=== PATIENT | male | born 1960 | race Caucasian/White ===

== ENCOUNTER → 2017-09-21 | Outpatient (CLI) | payer BC ==
[~2017-09-21] MED LIST: ALBU90AE IH; ALLO100T PO; ASPI-1181 PO; ASPI81TA40 PO; ATOR40TA69 PO; CARV6.25 PO; CEPH500B PO; CLOP75TA32 PO; FENO48TA4 PO; GUAI600T35 PO; HYDR12.530 PO; L.AC1CAP6 PO; NAPR-1023 PO; OMEP40CA37 PO; REGADENOSON 0.4 MG/5 ML PF SYG IVP SCH; ROSU20TA38 PO; VALS160T28 PO
== END | disposition home or self-care (01) ==
LOC: SHCH 08:26
PROVIDERS: ATTEND Internal Medicine Cardiovascular Disease
DX: R07.9 Chest pain, unspecified (principal); R06.00 Dyspnea, unspecified
CPT/HCPCS: 78452; 93017; 96374; A9500 ×2; J2785

== ENCOUNTER 2017-10-15 06:50 | Observation (INO) | payer BC ==
[2017-10-13 08:47] VITALS: BP 147/80
[2017-10-13 08:57] LABS: BASOPHILS % (AUTO) 0.6 % (0.0-5.0); EOSINOPHILS % (AUTO) 3.8 % (0.0-8.0); HEMATOCRIT 40.9 % (42-54); LYMPHOCYTES % (AUTO) 31.2 % (21.0-51.0); MEAN CORPUSCULAR HEMOGLOBIN 26.8 pg (27.0-33.0); MEAN CORPUSCULAR HGB CONC 33.5 g/dL (32.0-36.0); MONOCYTES % (AUTO) 8.1 % (3.0-13.0); NEUTROPHILS % (AUTO) 56.3 % (40.0-77.0); PLATELET COUNT (AUTO) 324 K/uL (130-400); RED BLOOD CELL COUNT(AUTO) 5.11 MIL/uL (4.50-6.20); RED CELL DISTRIBUTION WIDTH 13.6 % (11.0-15.5); WHITE BLOOD COUNT (AUTO) 8.7 K/uL (4.8-10.8)
[2017-10-13 08:59] LABS: APPEARANCE,URINE Clear (CLEAR); BILIRUBIN,URINE Negative (NEGATIVE); COLOR,URINE Yellow (YELLOW); GLUCOSE, URINE (UA) Negative (NEGATIVE); KETONES,URINE Negative (NEGATIVE); LEUKOCYTE ESTERASE ,URINE Negative (NEGATIVE); NITRATE,URINE Negative (NEGATIVE); OCCULT BLOOD,URINE Negative (NEGATIVE); PROTEIN,URINE Negative (NEGATIVE); UROBILINOGEN,URINE 0.2 mg/dL (0.2-1.0)
[2017-10-13 09:06] LABS: CREATININE 1.2 mg/dL (0.5-1.5); POTASSIUM 4.2 mmol/L (3.5-5.1)
[2017-10-13 09:16] LABS: PROTHROMBIN TIME 10.5 SEC (9.6-11.6)
[2017-10-15] VITALS (7 sets, daily range): BP systolic 109–137; BP diastolic 59–77
[~2017-10-15] VITALS: Ht 182.9 cm; Wt 139.7 kg
[~2017-10-15 06:50] MED LIST changes: -ALLO100T PO; -ASPI81TA40 PO; -CARV6.25 PO; -CEPH500B PO; -CLOP75TA32 PO; -NAPR-1023 PO; -REGADENOSON 0.4 MG/5 ML PF SYG IVP SCH; -ROSU20TA38 PO
[2017-10-15] MEDS ORDERED: SODIUM CHLORIDE 0.9% 1000ML 1,000 ML IV ONE (08:07)
[2017-10-15] MEDS ORDERED: HEPARIN SODIUM 1000UNIT/ML 10ML VIAL ONE (17:21)
[2017-10-15] MEDS ORDERED: NITROGLYCERIN 5 MG/ML 10 ML VIAL IV ONE (17:21)
[2017-10-15] MEDS ORDERED: IOPAMIDOL-370 100 ML VIAL IV ONE (17:21)
[2017-10-15] MEDS ORDERED: ISOVUE-370 50ML VIAL IV ONE ×2 (17:21→18:36)
[2017-10-15] MEDS ORDERED: LIDOCAINE HCL 2% 20ML ONE (17:22)
[2017-10-15] MEDS ORDERED: BIVALIRUDIN 250 MG/VIAL IV ONE (18:04)
[2017-10-15] MEDS ORDERED: CLOPIDOGREL BISULFATE 300 MG TAB ONE (18:27)
[2017-10-15] MEDS ORDERED: LABETALOL HCL 5 MG/ML 20ML VIAL IV ONE (18:33)
[2017-10-15] MEDS ORDERED: ASPIRIN 81MG TAB.CHEW ONE (19:07)
[2017-10-15] MEDS ORDERED: HYDRALAZINE HCL 20 MG/ML VIAL ONE ×2 (19:07→19:16)
[2017-10-15] MEDS ORDERED: SODIUM CHLORIDE 0.9% 1000ML 1,000 ML IV SCH (19:08)
[2017-10-15] MEDS ORDERED: ALBUTEROL SULFATE IH PRN (19:45)
[2017-10-15] MEDS ORDERED: CARVEDILOL 6.25 MG TABLET PO SCH (19:45)
[2017-10-15] MEDS ORDERED: GUAIFENESIN 600 MG TABLET.ER PO PRN (19:45)
[2017-10-15] MEDS ORDERED: PHARMACY COMMUNICATION MISC PRN (19:45)
[2017-10-15] MEDS: CARVEDILOL 6.25 MG TABLET PO SCH (20:38)
[2017-10-15] MEDS: LOSARTAN 100 MG TABLET PO SCH (21:00)
[2017-10-15] MEDS ORDERED: ATROPINE SULFATE 0.1 MG/ML 10 ML SYG IVP ONE (21:24)
[2017-10-16 03:58] VITALS: BP 110/64
[2017-10-16 04:27] LABS: HEMATOCRIT 37.9 % (42-54); MEAN CORPUSCULAR HEMOGLOBIN 26.7 pg (27.0-33.0); MEAN CORPUSCULAR HGB CONC 33.9 g/dL (32.0-36.0); MEAN CORPUSCULAR VOLUME 78.8 fL (79-99); PLATELET COUNT (AUTO) 326 K/uL (130-400); RED BLOOD CELL COUNT(AUTO) 4.81 MIL/uL (4.50-6.20); RED CELL DISTRIBUTION WIDTH 13.9 % (11.0-15.5); WHITE BLOOD COUNT (AUTO) 9.9 K/uL (4.8-10.8)
[2017-10-16 04:37] LABS: CREATININE 1.2 mg/dL (0.5-1.5); POTASSIUM 3.6 mmol/L (3.5-5.1)
[2017-10-16 07:00] VITALS: BP 134/77
[2017-10-16 07:48] VITALS: BP 110/64
[2017-10-16] MEDS: CARVEDILOL 6.25 MG TABLET PO SCH (07:48)
[2017-10-16] MEDS: LOSARTAN 100 MG TABLET PO SCH (07:48)
[2017-10-16] MEDS ORDERED: ASPIRIN 81MG TAB.CHEW PO SCH (09:00)
[2017-10-16] MEDS ORDERED: FENOFIBRATE NANOCRYSTALLIZED 48 MG TAB PO SCH (09:00)
[2017-10-16] MEDS ORDERED: NON-FORMULARY MEDICATION 1 EACH (Omeprazole 40 MG) PO SCH (09:00)
[2017-10-16] MEDS ORDERED: ASPIRIN 81 MG EC TAB PO SCH (09:00)
[2017-10-16] MEDS ORDERED: L.acidoph & Paracasei,B.lactis (Probiotic) 1 EACH PO SCH (09:00)
[2017-10-16] MEDS ORDERED: CLOPIDOGREL BISULFATE 75 MG TAB PO SCH (09:00)
[2017-10-16] MEDS ORDERED: ATORVASTATIN CALCIUM 40 MG TABLET PO SCH (09:00)
[2017-10-16] MEDS ORDERED: PANTOPRAZOLE SODIUM 40 MG TABLET.DR PO SCH (09:00)
[2017-10-16] MEDS ORDERED: ROSU20TA38 PO (09:15)
[2017-10-16] MEDS ORDERED: CARV6.25 PO (09:15)
[2017-10-16] MEDS ORDERED: CLOP75TA32 PO (09:15)
[2017-10-17] MEDS ORDERED: HYDROCHLOROTHIAZIDE 25 MG TABLET PO SCH (09:00)
== END 2017-10-16 10:43 | disposition home or self-care (01) ==
LOC: DAH 06:50 → DAHIP 06:51 → 2DH 20:08
PROVIDERS: ADMIT Internal Medicine Cardiovascular Disease; ATTEND Internal Medicine Cardiovascular Disease
DX: I25.10 Atherosclerotic heart disease of native coronary artery without angina pectoris (principal); E78.4 Other hyperlipidemia; I11.0 Hypertensive heart disease with heart failure; I27.20 Pulmonary hypertension, unspecified; I50.30 Unspecified diastolic (congestive) heart failure; Z95.5 Presence of coronary angioplasty implant and graft; Z79.82 Long term (current) use of aspirin; Z79.899 Other long term (current) drug therapy
CPT/HCPCS: 36415 ×3; 71045; 80048 ×2; 80061; 81003; 83880; 85025; 85027; 85610; 85730; 93005 ×3; 93460; A4606; C1725 ×2; C1760; C1769; C1874 ×4; C1887; C1894 ×3; C9600; C9601; G0378 ×28; J0360 ×2; J0461; J0583; J1644; J3490 ×3; J7030 ×2; Q9967 ×3

== ENCOUNTER → 2017-12-01 | Outpatient (CLI) | payer BC ==
[~2017-12-01] MED LIST changes: -ATOR40TA69 PO; +CARV6.25 PO; +CLOP75TA32 PO; -FENO48TA4 PO; +ROSU20TA30 PO; -VALS160T28 PO; +VALS160T29 PO
== END | disposition home or self-care (01) ==
LOC: SLP 20:19
PROVIDERS: ATTEND Internal Medicine Cardiovascular Disease
DX: G47.30 Sleep apnea, unspecified (principal)
CPT/HCPCS: 95810

== ENCOUNTER → 2017-12-08 | Outpatient (CLI) | payer BC | END | disposition home or self-care (01) | LOC: SLP 19:56 | PROVIDERS: ATTEND Internal Medicine Cardiovascular Disease | DX: G47.33 Obstructive sleep apnea (adult) (pediatric) (principal); I10 Essential (primary) hypertension; E66.9 Obesity, unspecified | CPT/HCPCS: 95811 ==

== ENCOUNTER 2017-12-29 13:45 | Emergency (ER) | payer BC ==
[2017-12-29 14:06] LABS: BASOPHILS % (AUTO) 0.6 % (0.0-5.0); EOSINOPHILS % (AUTO) 3.6 % (0.0-8.0); HEMATOCRIT 42.1 % (42-54); LYMPHOCYTES % (AUTO) 27.7 % (21.0-51.0); MEAN CORPUSCULAR HEMOGLOBIN 26.7 pg (27.0-33.0); MEAN CORPUSCULAR HGB CONC 33.9 g/dL (32.0-36.0); MEAN CORPUSCULAR VOLUME 78.8 fL (79-99); NEUTROPHILS % (AUTO) 60.1 % (40.0-77.0); NUCLEATED RED BLOOD CELLS 0.1 % (0.0-0.19); PLATELET COUNT (AUTO) 292 K/uL (130-400); RED BLOOD CELL COUNT(AUTO) 5.34 MIL/uL (4.50-6.20); RED CELL DISTRIBUTION WIDTH 13.9 % (11.0-15.5); WHITE BLOOD COUNT (AUTO) 8.5 K/uL (4.8-10.8)
[2017-12-29] MEDS ORDERED: SODIUM CHLORIDE 0.9% 1000ML 1,000 ML IV ONE (14:16)
[2017-12-29] MEDS ORDERED: NITROGLYCERIN 1GM/1 INCH PACKET TD ONE (14:16)
[2017-12-29 14:17] LABS: CREATININE 1.3 mg/dL (0.5-1.5)
[2017-12-29 14:21] LABS: INR 0.96 (0.85-1.15); PARTIAL THROMBOPLASTIN TIME 25.2 SEC (26.3-35.5); PROTHROMBIN TIME 10.1 SEC (9.6-11.6)
[2017-12-29 14:22] LABS: ALBUMIN 3.7 g/dL (3.5-5.0); BILIRUBIN,TOTAL 0.5 mg/dL (0.2-1.0); TOTAL PROTEIN, SERUM 6.8 g/dL (6.0-8.3)
== END 2017-12-29 17:56 | disposition home or self-care (01) ==
LOC: EDH 13:45
DX: R07.89 Other chest pain (principal); R53.1 Weakness; I25.10 Atherosclerotic heart disease of native coronary artery without angina pectoris; Z79.899 Other long term (current) drug therapy; Z95.818 Presence of other cardiac implants and grafts
CPT/HCPCS: 36415; 71045; 80053; 84484 ×2; 85025; 85610; 85730; 93005 ×2; 99285; J7030

== ENCOUNTER → 2018-08-03 | Outpatient (CLI) | payer BC ==
[~2018-08-03] VITALS: Ht 180.3 cm; Wt 146.5 kg
[~2018-08-03] MED LIST changes: +REGADENOSON 0.4 MG/5 ML PF SYG IVP SCH
== END | disposition home or self-care (01) ==
LOC: SHCH 08:54
PROVIDERS: ATTEND Internal Medicine Cardiovascular Disease
DX: I25.119 Atherosclerotic heart disease of native coronary artery with unspecified angina pectoris (principal); I10 Essential (primary) hypertension; G47.33 Obstructive sleep apnea (adult) (pediatric)
CPT/HCPCS: 78452; 93017; 96374; A9500 ×2; J2785

== ENCOUNTER → 2018-08-06 | Outpatient (CLI) | payer BC ==
[~2018-08-06] MED LIST changes: -REGADENOSON 0.4 MG/5 ML PF SYG IVP SCH
[2018-08-06 11:04] LABS: CREATININE 1.4 mg/dL (0.5-1.5)
== END | disposition home or self-care (01) ==
LOC: LAB 09:53
PROVIDERS: ATTEND Family Medicine
DX: J44.9 Chronic obstructive pulmonary disease, unspecified (principal); R06.02 Shortness of breath
CPT/HCPCS: 36415; 82565; 84520

== ENCOUNTER → 2018-08-13 | Outpatient (CLI) | payer BC ==
[~2018-08-13] MED LIST changes: +IOHEXOL 350 MG/ML 100ML INFUS..BTL IV ONE
== END | disposition home or self-care (01) ==
LOC: RAH 09:57
PROVIDERS: ATTEND Internal Medicine
DX: J44.9 Chronic obstructive pulmonary disease, unspecified (principal); K44.9 Diaphragmatic hernia without obstruction or gangrene; M47.895 Other spondylosis, thoracolumbar region; I51.7 Cardiomegaly; Z90.49 Acquired absence of other specified parts of digestive tract
CPT/HCPCS: 71275; Q9967

== ENCOUNTER 2018-09-27 08:14 | Day surgery (SDC) | payer BC, OTHER ==
[2018-09-24 13:20] LABS: BASOPHILS % (AUTO) 0.7 % (0.0-5.0); EOSINOPHILS % (AUTO) 3.9 % (0.0-8.0); HEMATOCRIT 45.2 % (42-54); LYMPHOCYTES % (AUTO) 33.2 % (21.0-51.0); MEAN CORPUSCULAR HGB CONC 33.3 g/dL (32.0-36.0); MEAN CORPUSCULAR VOLUME 80.9 fL (79-99); NEUTROPHILS % (AUTO) 53.2 % (40.0-77.0); PLATELET COUNT (AUTO) 262 K/uL (130-400); RED BLOOD CELL COUNT(AUTO) 5.59 MIL/uL (4.50-6.20); WHITE BLOOD COUNT (AUTO) 8.2 K/uL (4.8-10.8)
[2018-09-24 13:22] VITALS: BP 136/79
[2018-09-24 13:23] LABS: APPEARANCE,URINE Cloudy (CLEAR); BILIRUBIN,URINE Negative (NEGATIVE); COLOR,URINE Yellow (YELLOW); GLUCOSE, URINE (UA) Negative (NEGATIVE); KETONES,URINE Negative (NEGATIVE); LEUKOCYTE ESTERASE ,URINE Negative (NEGATIVE); NITRATE,URINE Negative (NEGATIVE); OCCULT BLOOD,URINE Negative (NEGATIVE); PH,URINE 6.5 (5.0-8.0); PROTEIN,URINE Negative (NEGATIVE)
[2018-09-24 13:33] LABS: CREATININE 1.4 mg/dL (0.5-1.5); POTASSIUM 4.7 mmol/L (3.5-5.1)
[2018-09-24 13:34] LABS: INR 0.99 (0.85-1.15); PARTIAL THROMBOPLASTIN TIME 27.3 SEC (26.3-35.5); PROTHROMBIN TIME 10.4 SEC (9.6-11.6)
[2018-09-24 13:38] LABS: BACTERIA,URINE Rare /HPF (None Seen); RBC,URINE None Seen /HPF (0-1); SQUAMOUS EPITHELIAL CELL,UR Rare /HPF (0-2); WBC,URINE 0-1 /HPF (0-1)
--- NOTE | 2018-09-24 14:22 | NUR ---
ABNORMAL LABS NOTIFIED [facility] REON OF PT'S BUN 20, CREATININE 1.4. NO FURTHER ORDERS GIVEN. OKAY TO PROCEED.
[~2018-09-27] VITALS: Ht 180.3 cm; Wt 134.8 kg
[2018-09-27] VITALS (10 sets, daily range): BP systolic 96–118; BP diastolic 51–68
[~2018-09-27 08:14] MED LIST changes: -ALBU90AE IH; +ALLO100T PO; -GUAI600T35 PO; -IOHEXOL 350 MG/ML 100ML INFUS..BTL IV ONE; +ISOS10TA2 PO; +RANO500T3 PO
[2018-09-27] MEDS ORDERED: SODIUM CHLORIDE 0.9% 1000ML 1,000 ML IV ONE (08:44)
--- NOTE | 2018-09-27 10:30 | NUR ---
PROCEDURE PT TAKEN TO FINANCIAL SECRETARY VIA BED FOR HEART CATH, PT AWAKE AND ALERT,NO DISTRESS NOTED. SPOUSE AT BEDSIDE.
[2018-09-27] MEDS ORDERED: BIVALIRUDIN 250 MG/VIAL IV ONE (10:40)
[2018-09-27] MEDS ORDERED: IOHEXOL 350 MG/ML 100ML INFUS..BTL IV ONE (10:41)
[2018-09-27] MEDS ORDERED: LIDOCAINE HCL 2% 20ML ONE (10:41)
[2018-09-27] MEDS ORDERED: IOHEXOL-350 50ML VIAL IV ONE (10:41)
[2018-09-27] MEDS ORDERED: NITROGLYCERIN 5 MG/ML 10 ML VIAL IV ONE (10:41)
[2018-09-27] MEDS ORDERED: ADENOSINE 90MG/30ML VIAL IV ONE ×2 (11:37→11:41)
[2018-09-27] MEDS ORDERED: HEPARIN SODIUM 1000UNIT/ML 10ML VIAL ONE (11:42)
[2018-09-27] MEDS ORDERED: SODIUM CHLORIDE 0.9% 1000ML 1,000 ML IV SCH (12:03)
--- NOTE | 2018-09-27 12:25 | NUR ---
POST RECEIVED PT FROM [facility]ENDER, S/P LEFT HEART CATH, RIGHT GROIN PERCLOSE DEVICE DRESSING DRY AND INTACT, NO HEMATOMA, BLEEDING NOTED. VS STABLE ON ARRIVAL , PT INSTRUCTED TO KEEP BEDREST FOR 1 HOUR, SPOUSE AT BEDSIDE.
--- NOTE | 2018-09-27 16:06 | NUR ---
DC DC INSTRUCTIONS GIVEN TO PT /PT SPOUSE , INSTRUCTED TO F/U WITH DR. MELCHOR, PT WAITING TO SPEAK TO DR MELCHOR BEFORE GOING HOME ABOUT PROCEDURE . DR MELCHOR HASN'T SPOKE TO PATIENT FAMILY ABOUT RESULTS ABOUT LHC. PT AWAKE AND ALERT ,NO DISTRESS NOTED. DENIES ANY PAIN OR DISCOMFORTS. RIGHT GROIN DRESSING DRY AND INTACT, NO BLEEDING OR HEMATOMA NOTED
--- NOTE | 2018-09-27 17:00 | NUR ---
MD DR MELCHOR IN TO TALK TO PT/ SPOUSE ABOUT FINDINGS ON LHC, PT STATED IS RUNNING OUT OF RANEXA MEDICATIONS. DR. MELCHOR GAVE PATIENT PRESCRIPTION FOR RANEXA.
--- NOTE | 2018-09-27 17:05 | NUR ---
DC PT DC HOME VIA WC, ACCOMPANIED BY SPOUSE. RANEXA PRESCRIPTION GIVEN TO PT SPOUSE. NO PIV NOTED
== END 2018-09-27 17:05 | disposition home or self-care (01) ==
LOC: DAH 08:14
PROVIDERS: ATTEND Internal Medicine Cardiovascular Disease
DX: I25.118 Atherosclerotic heart disease of native coronary artery with other forms of angina pectoris (principal); I10 Essential (primary) hypertension; E78.5 Hyperlipidemia, unspecified; Z95.5 Presence of coronary angioplasty implant and graft; Z82.49 Family history of ischemic heart disease and other diseases of the circulatory system; Z79.899 Other long term (current) drug therapy; G47.33 Obstructive sleep apnea (adult) (pediatric); Z68.41 Body mass index [BMI] 40.0-44.9, adult; R00.1 Bradycardia, unspecified; Z79.01 Long term (current) use of anticoagulants
CPT/HCPCS: 36415; 71045; 80048; 81001; 85025; 85610; 85730; 93005; 93458; 93571; 93572; C1760; C1769; C1887; C1894; J0153 ×2; J1644 ×2; J3490 ×2; J7030; Q9965 ×2; Q9967 ×2; J0583